=== PATIENT | male | born 1995 | race Caucasian/White ===

== ENCOUNTER 2024-10-02 14:00 | Outpatient (AMB) | payer OTHER, SELFPAY ==
[2024-10-02 14:05] VITALS: BP 126/80; PULSE 93; RESP 16; TEMP 37; O2SAT 99; BMI 30.7
--- NOTE | 2024-10-02 14:05 | MHC.PC.OV ---
Vital Signs 10/02/24 14:05 Height 5 ft 7.75 in Weight 200 lb 3.2 oz BMI 30.7 BP 126/80 Blood Pressure Location Lt brachial Position Sitting Respiration 16 Pulse 93 Pulse Source Pulse Oximeter Temp 98.6 F Temp Source Oral Pulse Oximetry (%) 99 Oxygen Delivery Method Room Air Intake Visit Reasons: establish care Intake Note: Patient is a new patient here to establish care. Transferring care from [facility]. Medical records have not been requested and have not received. Strategic Advisor Required: No Accompanied by: Self / Same As Patient Allergies No Known Allergies Allergy (Verified 10/02/24 14:19) Medication List - Last Reconciled 10/06/24 by TEOFILO Hernandez amoxicillin-pot clavulanate 875-125 mg 1 tab PO BID 10 days carbamide peroxide 6.5% (Debrox) 5 drps otic (ears) Q12H 4 days cetirizine 10 mg PO DAILY PRN fluticasone propionate 50 mcg/actuation 1 spray intranasal BID Tobacco use date assessed: 10/02/24 Dental Screening Dental Screen Date: 10/02/24 Did you have a dental visit in the last 12 months?: Yes Did you have a dental problem in the last 6 months where you did not have access to dental care?: No Was dental information given to patient?: Patient has dentist HPI establish care HPI Details Previous PCP: does not remember the name Last visit:2016 Last PE: same Specialist:n/a OBGYN:n/a Past medical history: Anxiety (reports seeing a therapist last week, will be seeing them next month Medications: Family HX:Mother HTN, DM -maternal grandmother, maternal uncle Problem: Reports that he is concern that may be he has ear infection and lately he has been getting heart palpitation reports that he noticed them throughout the day and but her noticed them more when he lays down Reports that it feels like his heart skips, speeds up or slow down reports that her gets sob WITH these symptoms Reports that a mild chest pain sometimes with these symptoms as well Reports that sometimes he will get dizzy or lightheaded denies drinking coffee or alcohol and never smoked EKG normal in office: The patient is going to play close attention to seeing it is his anxiety triggering the sensations Both ears are itchy, denies ear pain, + ear drainage from ears, clear in color most of the time, other times it is yellowish reports that he feel like water in the ears, the patient reports that is struggles with allergy and his also congested reports that he take zyrtec and sinus lavage without any significant improvements left ear completely blocked with cerumen impaction= right ear TM opaque without code of light= otitis media lungs clear, heart rate sinus The patient reports that his heart palpitations has been happenig pretty frequent lately. 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 1. Little interest or pleasure in doing things: several days 2. Feeling down, depressed, or hopeless: several days 3. Trouble falling or staying asleep, or sleeping too much: more than half the days 4. Feeling tired or having little energy: more than half the days 5. Poor appetite or overeating: several days 6. Feeling bad about yourself - or that you are a failure or have let yourself or your family down: several days 7. Trouble concentrating on things, such as reading the newspaper or watching television: not at all 8. Moving or speaking so slowly that other people could have noticed. Or the opposite - being so fidgety or restless that you have been moving around a lot more than usual: not at all 9. Thoughts that you would be better off or of hurting yourself in some way: not at all Total score: 8 Depression Screening Interpretation: Positive Depression Screening Done: Yes 40165 - PHQ-9 Billing: Yes Source: Developed by Drs. Kevin Ballard, Montrell Perkins and colleagues, with an educational brent from [employer]. Thrive Questionnaire Date Thrive assessed: 10/02/24 I am a: Patient What is your living situation today?: I have a steady place to live Within the past 12 months, did the food you bought not last and you didn't have the money to get more?: Sometimes True Within the past 12 months, did you worry whether your food would run out before you got money to buy more?: Sometimes True Do you have trouble paying for medicines?: No Do you have trouble getting transportation to medical appointments?: No Do you have trouble paying your heating and electricity bill?: No Do you have trouble taking care of your child, family member or friend?: No Do you have trouble with day-to-day activities such as bathing, preparing meals, shopping, managing finances, etc.?: No Are you currently unemployed and looking for a job?: No Are you interested in more education?: No Please select the resources that you would like help with: None Currently or been in a relationship where the following occur: No concerns reported THRIVE Score: 2 AUDIT C Alcohol Use Questionnaire (AUDIT-C) 1. How often do you have a drink containing alcohol?: Never Total Score: 0 DARRON-7 AMB Questionnaire DARRON-7 Date DARRON - 7 assessed: 10/02/24 Feeling nervous, anxious, or on edge: 1 = Several days Not being able to stop or control worryin = Several days Worrying too much about different things: 1 = Several days Trouble relaxin = Several days Being so restless that it is hard to sit still: 1 = Several days Becoming easily annoyed or irritable: 1 = Several days Feeling afraid as if something awful might happen: 1 = Several days Total DARRON-7 score (0-4 normal; 5-9 mild; 10-14 moderate; 15-21 severe): 7 Source: Developed by Dione Vidal Kurt Kroenke and colleagues, with an educational brent from [employer]. DARRON-7 Assessment Billing DARRON-7 Assessment Tool: DARRON-7 Assessment 46665 Review of Systems Const Denies headache(s) Eyes Denies loss of vision ENT Denies vertigo, Denies dizziness, Reports ear discharge (see HPI), Denies otalgia, Denies headache(s), Denies hearing loss, Reports nasal congestion (ongoing allergy) and Denies sore throat Card Reports chest pain (mild discomfort), Denies leg edema, Denies lightheadedness and Reports other (reports heart palpitation) Resp Denies cough, Denies hemoptysis and Denies wheezing GI Denies abdominal pain, Denies melena, Denies constipation, Denies diarrhea and Denies vomiting Denies dysuria, Denies urinary frequency and Denies urinary urgency Musc Denies arthralgias, Denies joint swelling, Denies numbness and Denies tingling Neuro Denies Abnormal speech present, Denies behavioral changes, Denies vertigo, Denies dizziness, Denies headache(s), Denies loss of vision, Denies memory loss, Denies numbness and Denies tingling Psych Denies anxiety, Denies behavioral changes, Denies depression, Denies memory loss and Denies panic attacks Chris/Lymph Denies easy bleeding and Denies easy bruising Aller/Immun Denies wheezing Physical exam (Primary Care) Vital Signs: Last Vital Signs Temp 98.6 F 10/02/24 14:05 Pulse 93 10/02/24 14:05 Resp 16 10/02/24 14:05 BP 126/80 10/02/24 14:05 Pulse Ox 99 10/02/24 14:05 Oxygen Delivery Method Room Air 10/02/24 14:05 BMI result Body Mass Index 30.7 Tobacco/Smoking Status: Tobacco use Status Tobacco use date assessed 10/02/24 10/02/24 14:21 Patient Tobacco Use Status Never used Tobacco 10/02/24 14:21 e-Cigarette/Vaping Use Never Used 10/02/24 14:21 PHQ-9: PHQ-9 Score PHQ-9: Total score 8 10/02/24 14:22 Depression Screening Interpretation: Positive Thrive Assessment: Date of Thrive Assessment Date Thrive assessed 10/02/24 10/02/24 14:21 Currently or been in a relationship where the following occur: No concerns reported Const General: healthy appearing, no acute distress, alert and awake Nutritional Appearance: well nourished Orientation/consciousness: oriented to person, oriented to place and oriented to time HENMT Ears: TM abnormal (right TM opaque, left TM completely blocked with cerumen) dull and with loss of landmarks on the right (no cone of light) General nose exam: Abnormal mucous membranes and turbinates present boggy Eyes Conjunctivae: conjunctivae normal Sclerae: sclerae normal Pupils: Equal, round and reactive pupils present Neck Neck: Yes no lymphadenopathy and Yes no JVD Thyroid: Thyroid normal Carotids: no bruits Resp Effort & Inspection: normal respiratory effort and not tachypneic Auscultation: no crackles, no rales, no rhonchi and no wheezes Cardio Rate: regular rate Rhythm: regular rhythm Heart sounds: no murmurs and normal S1 and S2 GI Palpation (GI): Soft to palpation, nontender, no hepatomegaly and no splenomegaly Auscultation: normal bowel sounds General: Yes no CVA tenderness Back/Spine/Pelvis Back: no CVA tenderness Skin General skin exam: no rashes or lesions noted and dry skin Neuro General: oriented to person, oriented to place and oriented to time Cranial nerves: Yes Equal, round and reactive pupils present Speech: No Abnormal speech present Gait exam (Neuro): Normal gait present Motor exam (neuro): no tremor noted Extrem Right upper extremity: full ROM Left upper extremity: full ROM Right lower extremity: full ROM; no edema Left lower extremity: full ROM; no edema Psych Mental Status: mental status grossly normal Speech and movement: Normal speech and movement present Affect: normal affect Attitude: cooperative Thought process: Normal thought process present Coding Level of Care Code New Pt Level 4 (50457) Diagnoses Heart palpitations R00.2 Impacted cerumen of left ear H61.22 Laterality: left Nasal congestion R09.81 Right otitis media, unspecified otitis media type H66.91 Otitis media type: unspecified Laterality: right Additional Codes DARRON-7 Assessment Billing - DARRON-7 Assessment Tool: DARRON-7 Assessment 33876 ([id number]) PHQ-9 - 16299 - PHQ-9 Billing: Yes ([id number]) Time Spent (min) 36 Assessment & Plan Assessment & Plan (1) Heart palpitations: Code(s): R00.2 - Palpitations Category: Medical Plan: Ekg negative in office, will send the patient for a 3-day holter monitor to further evaluate (2) Impacted cerumen: Code(s): H61.20 - Impacted cerumen, unspecified ear Category: Medical Qualifiers: Laterality: left Qualified Code(s): H61.22 - Impacted cerumen, left ear Plan: Debrox ear drops ordered (3) Nasal congestion: Code(s): R09.81 - Nasal congestion Category: Medical Plan: Fluticasone propionate 50 mcg/actuation 1 spray intranasal BID (4) Otitis media: Code(s): H66.90 - Otitis media, unspecified, unspecified ear Category: Medical Qualifiers: Otitis media type: unspecified Laterality: right Qualified Code(s): H66.91 - Otitis media, unspecified, right ear Plan: Augmentin BID X10 days ordered Orders: Orders Comprehensive Glidden. Panel Fast Today Z00.00 - Encounter for general adult medical examination without abnormal findings Vitamin D 25-OH Total Today Z00.00 - Encounter for general adult medical examination without abnormal findings UA CC w/rflx Micro + Cult Today Z00.00 - Encounter for general adult medical examination without abnormal findings ECG 3 day holter monitor 10/02/24 R00.2 - Palpitations Complete Blood Count Auto Diff Today Z00.00 - Encounter for general adult medical examination without abnormal findings Lipid Panel Today Z00.00 - Encounter for general adult medical examination without abnormal findings TSH reflex Free T4 Today Z00.00 - Encounter for general adult medical examination without abnormal findings Glucose Fasting Today Z00.00 - Encounter for general adult medical examination without abnormal findings Medications: New fluticasone propionate 50 mcg/actuation administer into each nostril 1 spray intranasal BID 16 grams 0RF R09.81 - Nasal congestion amoxicillin-pot clavulanate 875-125 mg 1 tab PO BID 10 days 20 tabs 0RF H66.90 - Otitis media, unspecified, unspecified ear carbamide peroxide 6.5% (Debrox) 5 drps otic (ears) Q12H 4 days 15 mL 0RF H61.20 - Impacted cerumen, unspecified ear
== END 2024-10-02 15:07 | disposition home or self-care (01) ==
LOC: HO.HMCH 14:01
DX: R00.2 Palpitations (principal); H61.22 Impacted cerumen, left ear; R09.81 Nasal congestion; H66.91 Otitis media, unspecified, right ear

== ENCOUNTER → 2024-10-02 14:00 | Outpatient (BNVA) | payer OTHER, SELFPAY | DX: R00.2 Palpitations (principal); H61.22 Impacted cerumen, left ear; H66.91 Otitis media, unspecified, right ear; R09.81 Nasal congestion | CPT/HCPCS: 96127; 99202 ==

== ENCOUNTER 2024-10-06 13:06 | Outpatient (REF) | payer OTHER, SELFPAY ==
[2024-10-06 13:28] LABS: MANUAL DIFF FLAG NO
[2024-10-06 14:04] LABS: Basophils Absolute Auto 0.1 X10*3/uL (0.0-0.2); Basophils Percent Auto 0.7 % (0-2); Eosinophils Absolute Auto 0.2 X10*3/uL (0.0-0.4); Eosinophils Percent Auto 1.6 % (0-4); Hematocrit 44.7 % (42.0-52.0); Hemoglobin 14.5 g/dl (14.0-18.0); Imm Gran Abs Auto 0.03 X10*3/uL (0.00-0.03); Imm Gran Pct Auto 0.3 % (0.0-0.4); Lymphocytes Percent Auto 20.9 % (20-40); Mean Corpuscular HGB Conc 32.4 g/dl (31.0-36.0); Mean Corpuscular Hemoglobin 27.3 pg (27.0-33.0); Mean Platelet Volume 11.2 fL (9.4-12.4); Monocytes Percent Auto 10.2 % (2-11); Neutrophils Absolute Auto 6.4 x10*3/uL (2.0-8.3); Neutrophils Percent Auto 66.3 % (45-73); Platelet Count 255 X10*3/uL (160-400); Red Blood Count 5.32 X10*6/uL (4.60-5.80); Red Cell Distribution Width 12.5 % (11.0-16.0); White Blood Count 9.6 X10*3/uL (4.8-10.8)
[2024-10-06 14:59] LABS: Alanine Aminotransferase 16 U/L (0-40); Albumin Level 4.5 g/dL (3.5-5.0); Alkaline Phosphatase 109 U/L (39-117); Anion Gap 13 (12-20); Aspartate Amino Transferase 18 U/L (5-37); Bilirubin Total 0.7 mg/dL (0.0-1.0); Blood Urea Nitrogen 16 mg/dL (9-16); Calcium 9.6 mg/dL (8.4-10.2); Carbon Dioxide 25 mmol/L (22-29); Chloride 106 mmol/L (96-108); Cholesterol 135 mg/dL (<200); Estimated Glomerular Filt Rate > 60; Glucose Fasting 88 mg/dL (60-99); HDL Cholesterol 39 mg/dL (>40); LDL Cholesterol Calculated 76 mg/dL (<100); Potassium 3.8 mmol/L (3.3-5.1); Sodium 140 mmol/L (135-145); TSH reflex Free T4 3.01 uIU/mL (0.32-4.0); Total Protein 8.5 g/dL (6.5-8.0); Triglycerides 104 mg/dL (<150); Vitamin D 25-OH Total 20.4 ng/mL (>30)
[2024-10-06 17:18] LABS: Appearance Urine Clear; Color Urine Yellow; Glucose Urine UA Negative (Negative); Leukocyte Esterase Urine Negative (Negative); Nitrite Urine Negative (Negative); Urine Blood Negative (Negative); Urine Ketones Negative (Negative); Urine Protein Negative (Neg-Trace)
== END 2024-10-06 13:07 | disposition home or self-care (01) ==
LOC: HO.LAB 13:06
DX: Z00.00 Encounter for general adult medical examination without abnormal findings (principal)
CPT/HCPCS: 36415; 80053; 80061; 81003; 82306; 84443; 85025

== ENCOUNTER → 2024-10-21 15:29 | Outpatient (REF) | payer OTHER, SELFPAY | LOC: HO.CARD 15:29 | DX: R00.2 Palpitations (principal) | CPT/HCPCS: 93242 ==

== ENCOUNTER → 2024-10-21 15:32 | Outpatient (BNV) | payer OTHER, SELFPAY | PROVIDERS: Visit Provider Internal Medicine Cardiovascular Disease | DX: R00.0 Tachycardia, unspecified (principal) | CPT/HCPCS: 93244 ==

== ENCOUNTER 2024-11-13 14:32 | Outpatient (AMB) | payer OTHER, SELFPAY ==
[2024-11-13 15:12] VITALS: BP 118/78; PULSE 99; RESP 16; TEMP 37.1; O2SAT 97; BMI 29.6
--- NOTE | 2024-11-13 15:12 | MHC.PC.OV ---
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 Impaired Required: No Accompanied by: Self / Same As Patient Allergies No Known Allergies Allergy (Verified 11/13/24 15:22) Medication List - Last Reconciled 11/13/24 by TEOFILO Hernandez cetirizine 10 mg PO DAILY PRN fluticasone propionate 50 mcg/actuation 1 spray intranasal BID PRN Tobacco use date assessed: 11/13/24 Dental Screening Dental Screen Date: 11/13/24 Did you have a dental visit in the last 12 months?: Yes Did you have a dental problem in the last 6 months where you did not have access to dental care?: No Was dental information given to patient?: Patient has dentist HPI pe HPI Details The patient is presenting for annual physical Dentist: up to date Eye: Snellen: Right: Left: Corrected vision: up to date STI screening:n/a Colonoscopy:n/a Pap Smer:n/a PHQ-9: Flu: not this season COVID:x3 Tdap: up to date Diet:regular Exercise: push ups and sit ups The patient is a 29-year-old male presenting with chronic ear discomfort secondary to suspected otitis externa and recent shoulder pain. The patient reported persistent ear issues initially treated with antibiotics for possible bacterial infection on prior visit; however, now the patient is having an itching sensation in his ear, suspecting potentially fungal infection. The patient reports an itching sensation primary in his left ear. The patient's shoulder discomfort appears related to his sleeping position on the affected side, causing strain rather than significant acute injury or trauma. He can perform daily activities but experiences discomfort when performing certain weight-bearing exercises. A previous monitoring for arrhythmias via a heart monitor exhibited episodes of shortness of breath correlating with anxiety and sleep deprivation without cardiac irregularities. Vitamin D deficiency was noted, along with increased protein intake contributing to elevated lab protein levels, necessitating dietary awareness. 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 1. Little interest or pleasure in doing things: several days 2. Feeling down, depressed, or hopeless: several days 3. Trouble falling or staying asleep, or sleeping too much: more than half the days 4. Feeling tired or having little energy: more than half the days 5. Poor appetite or overeating: more than half the days 6. Feeling bad about yourself - or that you are a failure or have let yourself or your family down: several days 7. Trouble concentrating on things, such as reading the newspaper or watching television: not at all 8. Moving or speaking so slowly that other people could have noticed. Or the opposite - being so fidgety or restless that you have been moving around a lot more than usual: nearly every day 9. Thoughts that you would be better off or of hurting yourself in some way: not at all Total score: 12 Depression Screening Interpretation: Positive Depression Screening Done: Yes 48439 - PHQ-9 Billing: Yes Source: Developed by Drs. Kevin Ballard, Dione Knapp, Montrell Jurado and colleagues, with an educational brent from [employer]. Thrive Questionnaire Date Thrive assessed: 11/13/24 I am a: Patient What is your living situation today?: I have a steady place to live Within the past 12 months, did the food you bought not last and you didn't have the money to get more?: Sometimes True Within the past 12 months, did you worry whether your food would run out before you got money to buy more?: Sometimes True Do you have trouble paying for medicines?: No Do you have trouble getting transportation to medical appointments?: No Do you have trouble paying your heating and electricity bill?: No Do you have trouble taking care of your child, family member or friend?: No Do you have trouble with day-to-day activities such as bathing, preparing meals, shopping, managing finances, etc.?: No Are you currently unemployed and looking for a job?: No Are you interested in more education?: No Please select the resources that you would like help with: None Currently or been in a relationship where the following occur: No concerns reported THRIVE Score: 2 AUDIT C Alcohol Use Questionnaire (AUDIT-C) 1. How often do you have a drink containing alcohol?: Never Total Score: 0 Score Reviewed/Action Taken: No DARRON-7 AMB Questionnaire DARRON-7 Date DARRON - 7 assessed: 11/13/24 Feeling nervous, anxious, or on edge: 2 = More than half the days Not being able to stop or control worryin = Several days Worrying too much about different things: 1 = Several days Trouble relaxin = Several days Being so restless that it is hard to sit still: 1 = Several days Becoming easily annoyed or irritable: 0 = Not at all Feeling afraid as if something awful might happen: 0 = Not at all Total DARRON-7 score (0-4 normal; 5-9 mild; 10-14 moderate; 15-21 severe): 6 Source: Developed by Drs. Kevin Ballard, Dione Knapp, Montrell Jurado and colleagues, with an educational brent from [employer]. DARRON-7 Assessment Billing DARRON-7 Assessment Tool: DARRON-7 Assessment [id number] Review of Systems Const Details: - General: Denies fatigue, malaise. - Ear/Nose/Throat: Reports ear discomfort. - Musculoskeletal: Reports shoulder discomfort, denies severe pain or functional limitations. - Cardiovascular: Denies palpitations; reports shortness of breath. - Endocrine: Denies symptoms of thyroid dysfunction. - Psychiatric: Reports anxiety. Denies headache(s) Eyes Denies loss of vision ENT Denies vertigo, Denies dizziness, Denies headache(s), Denies sore throat and Reports other (itching primarily in the left ear) Card Denies chest pain, Reports rapid heart rate, Denies leg edema, Denies lightheadedness and Reports dyspnea (associated with fast heart rates) Resp Denies cough, Denies hemoptysis, Reports dyspnea (associated with fast heart rates) and Denies wheezing GI Denies abdominal pain, Denies melena, Denies constipation, Denies diarrhea and Denies vomiting Denies dysuria, Denies urinary frequency and Denies urinary urgency Musc Reports arthralgias (right shoulder-discomfort), Denies joint swelling, Denies numbness and Denies tingling Neuro Denies Abnormal speech present, Denies behavioral changes, Denies vertigo, Denies dizziness, Denies headache(s), Denies loss of vision, Denies memory loss, Denies numbness and Denies tingling Psych Denies anxiety, Denies behavioral changes, Denies depression, Denies memory loss and Denies panic attacks Chris/Lymph Denies easy bleeding and Denies easy bruising Aller/Immun Denies wheezing Physical exam (Primary Care) Vital Signs: Last Vital Signs Temp 98.8 F 11/13/24 15:12 Pulse 99 11/13/24 15:12 Resp 16 11/13/24 15:12 BP 118/78 11/13/24 15:12 Pulse Ox 97 11/13/24 15:12 Oxygen Delivery Method Room Air 11/13/24 15:12 BMI result Body Mass Index 29.6 Tobacco/Smoking Status: Tobacco use Status Tobacco use date assessed 11/13/24 11/13/24 15:20 Patient Tobacco Use Status Never used Tobacco 11/13/24 15:20 e-Cigarette/Vaping Use Never Used 11/13/24 15:20 PHQ-9: PHQ-9 Score PHQ-9: Total score 12 11/14/24 15:12 Depression Screening Interpretation: Positive Thrive Assessment: Date of Thrive Assessment Date Thrive assessed 11/13/24 11/13/24 15:20 Currently or been in a relationship where the following occur: No concerns reported Const General: healthy appearing, no acute distress, alert and awake Nutritional Appearance: well nourished Orientation/consciousness: oriented to person, oriented to place and oriented to time HENMT Ears: TM's normal bilaterally and Abnormal EAC present (white/casillas secretion and patchy areas in bilateral ears) General nose exam: Normal nasal mucous membranes and turbinates present Eyes Conjunctivae: conjunctivae normal Sclerae: sclerae normal Pupils: Equal, round and reactive pupils present Neck Neck: Yes no lymphadenopathy and Yes no JVD Thyroid: Thyroid normal Carotids: no bruits Resp Effort & Inspection: normal respiratory effort and not tachypneic Auscultation: no crackles, no rales, no rhonchi and no wheezes Cardio Rate: regular rate Rhythm: regular rhythm Heart sounds: no murmurs and normal S1 and S2 GI Palpation (GI): Soft to palpation, nontender, no hepatomegaly and no splenomegaly Auscultation: normal bowel sounds Skin General skin exam: no rashes or lesions noted and dry skin Neuro General: oriented to person, oriented to place and oriented to time Cranial nerves: Yes Equal, round and reactive pupils present Speech: No Abnormal speech present Gait exam (Neuro): Normal gait present Motor exam (neuro): no tremor noted Extrem Right upper extremity: full ROM Left upper extremity: full ROM Right lower extremity: full ROM; no edema Left lower extremity: full ROM; no edema Psych Mental Status: mental status grossly normal Speech and movement: Normal speech and movement present Affect: normal affect Attitude: cooperative Thought process: Normal thought process present Results Reviewed Results Reviewed: Laboratory Tests 10/06/24 10/06/24 13:25 14:50 WBC 9.6 RBC 5.32 Hgb 14.5 Hct 44.7 MCV 84.0 MCH 27.3 MCHC 32.4 RDW 12.5 Plt Count 255 Sodium 140 Potassium 3.8 Chloride 106 Carbon Dioxide 25 Anion Gap 13 BUN 16 Creatinine 1.09 Estimated GFR > 60 Fasting Glucose 88 Calcium 9.6 Total Bilirubin 0.7 AST 18 ALT 16 Alkaline Phosphatase 109 Total Protein 8.5 H Albumin 4.5 Triglycerides 104 Cholesterol 135 LDL Cholesterol, Calc 76 HDL Cholesterol 39 L 25-OH Vitamin D Total 20.4 L TSH 3.01 Urine Color Yellow Urine Appearance Clear Urine pH 6.0 Ur Specific [place] 1.010 Urine Protein Negative Urine Glucose (UA) Negative Urine Ketones Negative Urine Blood Negative Urine Nitrite Negative Ur Leukocyte Esterase Negative Coding Level of Care Code Est Pt Prev Care 18-39y(93259) Diagnoses Annual physical exam Z00.00 Heart palpitations R00.2 Other infective acute otitis externa of both ears H60.393 Otitis externa type: other infective Chronicity: acute Laterality: bilateral Nasal congestion R09.81 Right shoulder pain, unspecified chronicity M25.511 Chronicity: unspecified Vitamin D deficiency E55.9 Additional Codes DARRON-7 Assessment Billing - DARRON-7 Assessment Tool: DARRON-7 Assessment [id number] ([id number]) PHQ-9 - 06355 - PHQ-9 Billing: Yes ([id number]) Time Spent (min) 33 Assessment & Plan Assessment & Plan (1) Annual physical exam: Code(s): Z00.00 - Encounter for general adult medical examination without abnormal findings Category: Medical (2) Heart palpitations: Code(s): R00.2 - Palpitations Category: Medical (3) Otitis externa: Code(s): H60.90 - Unspecified otitis externa, unspecified ear Category: Medical Qualifiers: Otitis externa type: other infective Chronicity: acute Laterality: bilateral Qualified Code(s): H60.393 - Other infective otitis externa, bilateral (4) Nasal congestion: Code(s): R09.81 - Nasal congestion Category: Medical (5) Right shoulder pain: Code(s): M25.511 - Pain in right shoulder Category: Medical Qualifiers: Chronicity: unspecified Qualified Code(s): M25.511 - Pain in right shoulder (6) Vitamin D deficiency: Code(s): E55.9 - Vitamin D deficiency, unspecified Category: Medical Plan Preventative guidelines and recent labs reviewed with patient. He also had 3-day holter monitor done for complains of heart palpitation. The patient results showed sinus tachycardia with no ectopy, appears to be correlating with the patient complaints of anxiety and sob. Administration of ear drops to address suspected fungal ear infection; ear drops ordered. Monitoring of shoulder discomfort through changes in sleeping position and activity modifications. Management of vitamin D deficiency through supplements, addressing dietary habits. Continuous monitoring for anxiety-related symptoms and provision of lifestyle modifications to reduce anxiety. No cardiac cause detected for shortness of breath, continuous observation advised. Patient was informed and verbally consented to the use of an ambient scribe for clinic note documentation during this visit. Orders: Orders Lipid Panel 1 Year H60.90 - Unspecified otitis externa, unspecified ear, R00.2 - Palpitations, R09.81 - Nasal congestion, Z00.00 - Encounter for general adult medical examination without abnormal findings TSH reflex Free T4 1 Year H60.90 - Unspecified otitis externa, unspecified ear, R00.2 - Palpitations, R09.81 - Nasal congestion, Z00.00 - Encounter for general adult medical examination without abnormal findings UA CC w/rflx Micro + Cult 1 Year H60.90 - Unspecified otitis externa, unspecified ear, R00.2 - Palpitations, R09.81 - Nasal congestion, Z00.00 - Encounter for general adult medical examination without abnormal findings Vitamin D 25-OH Total 1 Year H60.90 - Unspecified otitis externa, unspecified ear, R00.2 - Palpitations, R09.81 - Nasal congestion, Z00.00 - Encounter for general adult medical examination without abnormal findings Glucose Fasting 1 Year H60.90 - Unspecified otitis externa, unspecified ear, R00.2 - Palpitations, R09.81 - Nasal congestion, Z00.00 - Encounter for general adult medical examination without abnormal findings Complete Blood Count Auto Diff 1 Year H60.90 - Unspecified otitis externa, unspecified ear, R00.2 - Palpitations, R09.81 - Nasal congestion, Z00.00 - Encounter for general adult medical examination without abnormal findings Comprehensive [place]. Panel Fast 1 Year H60.90 - Unspecified otitis externa, unspecified ear, R00.2 - Palpitations, R09.81 - Nasal congestion, Z00.00 - Encounter for general adult medical examination without abnormal findings Medications: New hydrocortisone-acetic acid 1-2 % apply to (cotton) wick; replace wick every 24 hours 4 drps otic (ear) left TID 10 days 10 mL 0RF H60.90 - Unspecified otitis externa, unspecified ear Changed From fluticasone propionate 50 mcg/actuation administer into each nostril 1 spray intranasal BID 16 grams 0RF R09.81 - Nasal congestion To fluticasone propionate 50 mcg/actuation administer into each nostril 1 spray intranasal BID PRN R09.81 - Nasal congestion Patient Instructions: - Use prescribed ear drops in both ears, 4 drops, 3 times a day, holding it in for proper absorption. - Take vitamin D supplement of 1000 IU daily. - Monitor anxiety symptoms, avoid triggers, ensure adequate sleep. - Adjust sleeping position to relieve shoulder discomfort; alert clinician if pain worsens. - Follow up next year for a physical exam with preordered lab work.
== END 2024-11-13 16:38 | disposition home or self-care (01) ==
LOC: HO.HMCH 14:33
DX: Z00.00 Encounter for general adult medical examination without abnormal findings (principal); R00.2 Palpitations; H60.393 Other infective otitis externa, bilateral; R09.81 Nasal congestion; M25.511 Pain in right shoulder; E55.9 Vitamin D deficiency, unspecified

== ENCOUNTER → 2024-11-13 14:32 | Outpatient (BNVA) | payer OTHER, SELFPAY | DX: Z00.00 Encounter for general adult medical examination without abnormal findings (principal); R00.2 Palpitations; H60.393 Other infective otitis externa, bilateral; R09.81 Nasal congestion; M25.511 Pain in right shoulder; E55.9 Vitamin D deficiency, unspecified | CPT/HCPCS: 96127; 99395 ==

== ENCOUNTER 2024-12-24 13:19 | Outpatient (AMB) | payer OTHER, SELFPAY ==
[2024-12-24 13:30] VITALS: BP 126/78; PULSE 110; TEMP 36.8; O2SAT 96; BMI 30.6
--- NOTE | 2024-12-24 13:30 | MHC.OFFWIV ---
Intake Vital Signs 12/24/24 13:30 Height 5 ft 5.75 in Weight 188 lb BMI 30.6 BP 126/78 Blood Pressure Location Lt brachial Position Sitting Pulse 110 H Pulse Source Pulse Oximeter Temp 98.2 F Temp Source Oral Pulse Oximetry (%) 96 Oxygen Delivery Method Room Air Intake Visit Reasons: EP Rt shoulder pain Intake Note: Pt presents to the office today for c/o right shoulder pain when lifting his arm above his head. Pt states this has been going on for the past 4 months with no known injury. Patient Tobacco Use Status: Never used Tobacco Allergies No Known Allergies Allergy (Verified 12/24/24 13:33) HPI HPI Comments History of Present Illness Details History of Present Illness - The patient is a 29-year-old male presenting with right shoulder pain persisting for four months without any specific known injury. - He reports pain exacerbation with lifting objects above head, rotation, and while engaging in activities such as throwing a football. - Initial recommendations included treating for soreness with lqzq-cif-ptyeric medications though with minimal improvement, prompting further assessment. - No associated symptoms such as numbness radiating into the hands, back pain, or neck pain are reported. - Difficulty in performing push-ups and specific maneuvers indicate persistent discomfort. - Movements eliciting pain include lifting arm upwards, moving it across the body, and placing the hand behind the back. - He denies trauma or falls. He denies numbness, tingling, neck pain, upper back pain, arm pain. Physical Exam General: Cooperative, healthy appearing, comfortable, no acute distress and well developed Neck: Normal visual inspection and Yes full ROM Respiratory: Normal respiratory effort and able to speak in complete sentences. Clear to auscultation bilaterally Cardiovascular: Regular rate and rhythm. Normal S1 and S2 Skin: No rashes or lesions noted Neuro: Patient oriented x3. Sensation intact. Extremities: FROM of the shoulders bilaterally. No click noted. No TTP of the clavicle, AC joint, anterior or posterior shoulder. No TTP of upper arm pain. FROM of the right elbow and wrist. Hand industrial waste inspector intact. Strength is 5/5 on the UE bilaterally. Patient was informed and verbally consented to the use of an ambient scribe for clinic note documentation during this visit. [facility] Surgical History No pertinent past surgical history Family History Father Depression Anxiety Substance abuse Mother FH: type 2 diabetes Obesity Social History Household Members Other:: Maternal Grandmother Housing: Apartment Are you a primary healthcare recruiter to a significant other at home: Yes Alcohol intake: never Patient Tobacco Use Status: Never used Tobacco e-Cigarette/Vaping Use: Never Used Second Hand Smoke Exposure: No service: No Current occupational status: employed Current occupation: MEDICAL ADMINISTRATIVE Cognitive needs: No Hearing needs: No Vision needs: No Review of Systems Const All systems reviewed & are unremarkable except as noted in HPI and below Physical Exam Vital Signs: Last Vital Signs Temp 98.2 F 12/24/24 13:30 Pulse 110 H 12/24/24 13:30 BP 126/78 12/24/24 13:30 Pulse Ox 96 12/24/24 13:30 Oxygen Delivery Method Room Air 12/24/24 13:30 BMI result Body Mass Index 30.6 Assessment & Plan Assessment & Plan (1) Right shoulder pain: Code(s): M25.511 - Pain in right shoulder Qualifiers: Chronicity: unspecified Qualified Code(s): M25.511 - Pain in right shoulder Plan: Most likely Plan - Order radiographic imaging of the right shoulder to assess underlying structural issues. - Referral to orthopedic surgery is indicated to explore further management options given the duration and nature of pain. - Advise the patient to refrain from activities that may exacerbate pain until further assessment is finalized. - Coordinate with orthopedics for follow-up care post-imaging outcomes to implement an appropriate management strategy. Plan Most likely strain vs AC joint separation vs tendonitis vs bursitis Plan - Naproxen as needed for pain. - Order radiographic imaging of the right shoulder to assess underlying structural issues. X-ray was normal and discussed with patient. - Referral to orthopedic surgery is indicated to explore further management options given the duration and nature of pain. - Advise the patient to refrain from activities that may exacerbate pain until further assessment is finalized. Orders: Orders XR shoulder RT min 2V Today M25.511 - Pain in right shoulder Referrals Orthopedics Referral M25.511 - Pain in right shoulder Medications: New naproxen 500 mg PO Q12H PRN 20 tabs 0RF pain Coding Level of Care Code Est Pt Level 4 (34646) Diagnoses Right shoulder pain, unspecified chronicity M25.511 Chronicity: unspecified
== END 2024-12-24 14:54 | disposition home or self-care (01) ==
PROVIDERS: Visit Provider Physician Assistant Medical
DX: M25.511 Pain in right shoulder (principal)

== ENCOUNTER 2024-12-24 13:19 | Outpatient (REF) | payer OTHER, SELFPAY ==
--- NOTE | ~2024-12-24 | XR_ITS ---
EXAMINATION: XR SHOULDER, RIGHT CLINICAL INFORMATION: M25.511 - Pain in right shoulder COMPARISON: None available. TECHNIQUE: Three views of the right shoulder. FINDINGS: Normal bone mineralization. No fracture, dislocation, or suspicious bone lesion. Normal alignment. The glenohumeral joint is normal. The AC joint is normal. There is a type II acromion. No undersurface spurring. The subacromial space is preserved. Remainder of the soft tissue and bony structures appear normal. XR/XR shoulder RT min 2V IMPRESSION: Normal right shoulder. Electronically signed by: Sung James MD 12/24/2024 02:30 PM EDT
== END 2024-12-24 13:20 | disposition home or self-care (01) ==
LOC: HO.HMGCX 13:19
PROVIDERS: Visit Provider Physician Assistant Medical
DX: M25.511 Pain in right shoulder (principal)
CPT/HCPCS: 73030; 99212

== ENCOUNTER → 2024-12-24 14:10 | Outpatient (BNV) | payer OTHER, SELFPAY | PROVIDERS: Visit Provider Radiology Diagnostic Radiology | DX: M25.511 Pain in right shoulder (principal) | CPT/HCPCS: 73030 ==

== ENCOUNTER 2025-02-24 11:01 | Outpatient (AMB) | payer OTHER, SELFPAY ==
--- NOTE | 2025-02-24 11:07 | A.OFFVIS_ITS ---
Vital Signs 02/24/25 11:11 Height 5 ft 8 in Weight 175 lb BMI 26.6 Intake Visit Reasons: Right shoulder pain and weakness Intake Note: Larry is a 29 year old male right hand dominant who presents with complaints of progressively worsening right shoulder pain and weakness. The patient states that his symptoms have gotten worse over the last 7 months. The patient states that he hurt his shoulder in July. He had acute onset of pain along the lateral aspect of his right shoulder. He has tried physical therapy exercises which aggravated his pain. He has also tried naproxen and Tylenol which gave him minimal relief. The patient reports weakness when lifting his right hand above shoulder height. Allergies No Known Allergies Allergy (Verified 02/24/25 11:11) Medication List - Last Reconciled 02/24/25 by Aden Estevez MD cetirizine 10 mg PO DAILY PRN fluticasone propionate 50 mcg/actuation 1 spray intranasal BID PRN PFSH Surgical History No pertinent past surgical history Family History Father Depression Anxiety Substance abuse Mother FH: type 2 diabetes Obesity Social History Household Members Other:: Maternal Grandmother Housing: Apartment Are you a primary patient centered care specialist to a significant other at home: Yes Alcohol intake: never Patient Tobacco Use Status: Never used Tobacco e-Cigarette/Vaping Use: Never Used Second Hand Smoke Exposure: No service: No Current occupational status: employed Current occupation: [employer] Cognitive needs: No Hearing needs: No Vision needs: No Physical Exam Vital Signs: BMI result Body Mass Index 26.6 Const Other: Well-nourished well-developed very friendly male awake alert and oriented x3 in no acute distress Extrem Other: Bilateral upper extremity examination shows good capillary refill, no skin lesions noted, normal sensation light touch Right shoulder examination shows slightly decreased range motion when compared to his left shoulder, positive impingement signs, 4+ out of 5 strength with supraspinatus testing, tenderness over his acromioclavicular joint, no instability Results Reviewed Results Reviewed: X-rays of the patient's right shoulder show moderate to severe acromioclavicular joint narrowing, a type 2 acromion, no acute bony abnormalities Assessment & Plan Assessment & Plan (1) Rotator cuff insufficiency of right shoulder: Code(s): M25.311 - Other instability, right shoulder Category: Medical Plan Mr. Vasquez presents with right shoulder pain and weakness due to impingement syndrome as well as possible rotator cuff or labral tearing. Thus, I will send the patient for an MRI of his right shoulder for further evaluation. I will contact him by phone once the MRI results are available. Feel free to call me at any time should questions regarding his orthopedic management arise. Thank you very much for asking me to see this very friendly gentleman. I spent 21 minutes in reviewing the patient's records and imaging studies, seeing the patient and documenting in the medical record. Orders: Orders MR shoulder RT wo con 02/25/25 M25.311 - Other instability, right shoulder Coding Level of Care Code New Pt Level 3 (33944) Complex EM visit Add On G2211 Diagnoses Rotator cuff insufficiency of right shoulder M25.311
[2025-02-24 11:11] VITALS: BMI 26.6
== END 2025-02-24 11:23 | disposition home or self-care (01) ==
LOC: HO.HOS 11:02
PROVIDERS: Visit Provider Orthopaedic Surgery
DX: M25.311 Other instability, right shoulder (principal)
CPT/HCPCS: 99203

== ENCOUNTER → 2025-02-24 11:01 | Outpatient (BNVA) | payer OTHER, SELFPAY | PROVIDERS: Visit Provider Orthopaedic Surgery | DX: M25.311 Other instability, right shoulder (principal) | CPT/HCPCS: 99202 ==

== ENCOUNTER 2025-05-11 08:00 | Outpatient (RCR) | payer OTHER, SELFPAY ==
--- NOTE | 2025-04-12 09:46 | MHC.PT.EP ---
[facility] [place] Office [place] Office [place] Office [address] Azar Cifuentes [address] [phone] F: [phone] F: [phone] F: [phone] F: [phone] Physical Therapy Plan of Care Date of Evaluation: 04/12/25 Date of Surgery: n/a Diagnosis: R shoulder impingement Assessment: Patient is a 30 year old male presenting to PT with complaints of pain in his R shoulder. Pt reports onset of pain began 1 year ago due to insidious onset. He presents today with impairments in pain, ROM, shoulder strength, posture. 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 Clinical presentation today is most consistent with signs and sx associated with R shoulder pain and pt will benefit from skilled PT 2 week x 4 weeks to address the following problems and impairments noted upon evaluation: pain, ROM, shoulder strength, posture. These problems limit the patient with the following functional activities: reaching, lifting, ADLs, work. The prescribed treatment plan of care is medically necessary. Co-morbidities of none were identified and taken into considerations of plan of care. Pt was educated on HEP, role of PT, prognosis, POC. Frequency and Duration: The patient will be seen 2 x week x 4 weeks Short Term Goals: Pt will demonstrate R shoulder ROM equal B in 2 weeks. Pt will demonstrate improved R shoulder MMT strength by 1/3 grade in 2 weeks. Pt will require min to no cues during session for postural correction in 2 weeks. Penitentiary Goals: Pt will demonstrate improved SPADI score by 13 points in 4 weeks for improved functional mobility. Pt will demonstrate ability to dress with min to no pain in 4 weeks for improved tolerance to ADLs. Pt will demonstrate ability reach and lift with min to no pain in 4 weeks for return to PLOF. Treatment Plan: Modalities to reduce pain, spasms and effusion. Manual therapy to restore motion and function. Therapeutic exercise to improve strength and flexibility. Neuromuscular re-education for posture and balance. Therapeutic activities to return to functional activities of daily living. Electronically signed by: Audrey Andrade, PT, DPT, ATC Please sign and return to therapist. Thank you for your referral.
--- NOTE | 2025-05-26 09:01 | MHC.PT.DC ---
[facility] [place] Office [place] Office [place] Office [address] Cifuentes [address] [phone] F: [phone] F: [phone] F: [phone] F: [phone] Physical Therapy Discharge Report Diagnosis: R shoulder impingement Date of Surgery: n/a Date of Evaluation: 04/12/25 Date of Discharge: 05/26/25 Treatments to Date: 5 Cancellations to Date: 0 No Shows to Date: 2 Discharge Status: Visit Non-compliance Discharge Summary: Pt has failed to comply with [facility] attendance policy and no showed 2 appointments. Pt therefore to be d/c per policy. Electronically signed by: Audrey Andrade, PT, DPT, ATC Please sign and return to therapist. Thank you for your referral.
== END 2025-05-26 09:01 | disposition home or self-care (01) ==
LOC: HO.PTCHIC 08:00
PROVIDERS: Visit Provider Orthopaedic Surgery
DX: M25.811 Other specified joint disorders, right shoulder (principal)
CPT/HCPCS: 97110; 97161

== ENCOUNTER 2025-05-26 09:43 | Outpatient (AMB) | payer OTHER, SELFPAY ==
--- NOTE | 2025-05-26 09:44 | A.OFFVIS_ITS ---
Intake Visit Reasons: OV - RT shoulder follow up after PT Intake Note: Larry is a 29 year old male right hand dominant who presents with complaints of progressively worsening right shoulder pain and weakness. The patient states that his symptoms have gotten worse over the last 9 months. The patient states that he hurt his shoulder in July. He had acute onset of pain along the lateral aspect of his right shoulder. He has tried physical therapy exercises which aggravated his pain. He has also tried naproxen and Tylenol which gave him minimal relief. The patient reports weakness when lifting his right hand above shoulder height. The patient's insurance company denied his right shoulder MRI because he had not been to formal physical therapy. He has been going to formal physical therapy for the last 6 weeks which has given him no relief of his pain. Allergies No Known Allergies Allergy (Verified 05/26/25 09:48) Medication List - Last Reconciled 05/26/25 by Aden Estevez MD cetirizine 10 mg PO DAILY PRN fluticasone propionate 50 mcg/actuation 1 spray intranasal BID PRN PFSH Surgical History No pertinent past surgical history Family History Father Depression Anxiety Substance abuse Mother FH: type 2 diabetes Obesity Social History Household Members Other:: Maternal Grandmother Housing: Apartment Are you a primary daytime caregiver to a significant other at home: Yes Alcohol intake: never Patient Tobacco Use Status: Never used Tobacco e-Cigarette/Vaping Use: Never Used Second Hand Smoke Exposure: No service: No Current occupational status: employed Current occupation: SOFTWARE RELIABILITY ENGINEER Cognitive needs: No Hearing needs: No Vision needs: No Physical Exam Const Other: Well-nourished well-developed very friendly male awake alert and oriented x3 in no acute distress Extrem Other: Right shoulder examination shows slightly decreased range of motion when compared to his left shoulder, 4+ out of 5 strength with supraspinatus testing, positive impingement signs Assessment & Plan Assessment & Plan (1) Rotator cuff insufficiency of right shoulder: Code(s): M25.311 - Other instability, right shoulder Category: Medical Plan Mr. Vasquez presents with right shoulder pain and weakness due to impingement syndrome and possible rotator cuff tearing. The patient has now failed the last 6 weeks of formal physical therapy. I will once again order a right shoulder MRI to evaluate the status of his rotator cuff tendons. I will see him back once the MRI is completed to discuss the findings and treatment options. Feel free to call me at any time should questions regarding his ortho pedic management arise. I spent 20 minutes in reviewing the patient's records and imaging studies, seeing the patient and documenting in the medical record. Orders: Orders MR shoulder RT wo con 05/27/25 M25.311 - Other instability, right shoulder Coding Level of Care Code Est Pt Level 3 (81891) Complex EM visit Add On G2211 Diagnoses Rotator cuff insufficiency of right shoulder M25.311
== END 2025-05-26 10:02 | disposition home or self-care (01) ==
LOC: HO.HOS 09:44
PROVIDERS: Visit Provider Orthopaedic Surgery
DX: M25.311 Other instability, right shoulder (principal)
CPT/HCPCS: 99213

== ENCOUNTER → 2025-05-26 09:43 | Outpatient (BNVA) | payer OTHER, SELFPAY | PROVIDERS: Visit Provider Orthopaedic Surgery | DX: M25.511 Pain in right shoulder (principal); M25.311 Other instability, right shoulder | CPT/HCPCS: 99212 ==

== ENCOUNTER 2025-07-07 07:30 | Outpatient (REF) | payer OTHER, SELFPAY ==
--- NOTE | ~2025-07-07 | MR_ITS ---
CLINICAL HISTORY: M25.311 - Other instability, right shoulder --- Additional Notes or Special Instructions: The patients right shoulder MRI was initially denied by his insurance Exam: Nonenhanced MRI of the right shoulder. Comparison: Radiographs dated 12/24/2024. Rotator cuff: Supraspinatus, infraspinatus and subscapularis tendons appear intact, with no evidence of tendon tears or significant tendinopathy. Glenoid labrum: There appears to be a small posterior glenoid labral tear (12; 12 -15). No other focal glenoid labral tear is appreciated. Bicipital tendon: Bicipital tendon is within its expected position in the intertubercular groove. Bicipital anchor appears intact. Acromioclavicular joint: Mild degenerative disease. Joint space and soft tissues: There is trace fluid within the subdeltoid bursa. No significant glenohumeral joint effusion. Impression: 1. Suspect small tear involving the posterior glenoid labrum. 2. Trace fluid within the subdeltoid bursa. 3. Mild acromioclavicular degenerative disease. This document has been electronically signed by: Ray Banks MD on 07/07/2025 15:55:50
--- OUTSIDE RECORDS SUMMARY | 2025-07-07 07:34 | XMS_ITS | Clinical Summary ---
Author Organization [facility] Address [address] [place] [phone] Phone Care Team Providers Care Melt House Supervisor Name Role Phone Unavailable Primary Care Provider Unavailabl e Immunizations Immunization Administration Dates Next Due Varicella 03/26/2002 Social History Tobacco Use Types Packs/Day Years Used Date Smoking Tobacco: Never Assessed Sex and Gender Information Value Date Recorded Sex Assigned at Not on file Legal Sex Male 3:28 PM EDT Gender Identity Not on file Sexual Orientation Not on file Plan of Treatment Health Maintenance Due Date Last Done Comments MMR Vaccines (1 of 1 - Stand phillip series) 04/23/2002 Varicella Vaccines (2 of 2 - 2-dose childhood series) 06/18/2002 03/26/2002 DTaP,Tdap,and Td Vaccines (1 - Tdap) 2014 Hepatitis B Vaccines (1 of 3 - 19+ 3-dose series) 2015 HPV Vaccines (1 - 3-dose SCD M series) 2023 Influenza Vaccines (#1) 2025 COVID-19 Vaccine (1 - 2024-2 6 season) 2025 HIB Vaccines Aged Out No longer eligi ble based on patient's age to complete this topic Hepatitis A Vaccines Aged Out No long er eligible based on patient's age to complete this topic IPV Vaccines Aged Out No longer eligi ble based on patient's age to complete this topic Men B Vaccine Aged Out No longer elig ible based on patient's age to complete this topic Meningococcal Vaccine Aged Out No jenn andrews eligible based on patient's age to complete this topic Pneumococcal Vaccine Aged Out No long er eligible based on patient's age to complete this topic
== END 2025-07-07 07:31 | disposition home or self-care (01) ==
LOC: HO.MRI 07:30
PROVIDERS: Visit Provider Orthopaedic Surgery
DX: M25.311 Other instability, right shoulder (principal)
CPT/HCPCS: 73221

== ENCOUNTER → 2025-07-07 07:34 | Outpatient (BNV) | payer OTHER, SELFPAY | PROVIDERS: Visit Provider Radiology Diagnostic Radiology | DX: M19.011 Primary osteoarthritis, right shoulder (principal) | CPT/HCPCS: 73221 ==

== ENCOUNTER 2025-07-14 13:53 | Outpatient (AMB) | payer OTHER, SELFPAY ==
--- OUTSIDE RECORDS SUMMARY | 2025-07-14 13:56 | XMS_ITS | Clinical Summary ---
Author Organization [facility] Address [address] [place] [id number] Phone Care Team Providers Care Manager Global Name Role Phone Unavailable Primary Care Provider [...]
--- NOTE | 2025-07-14 13:57 | A.OFFVIS_ITS ---
Intake Visit Reasons: INJ-right shoulder cortisone injection. Intake Note: Larry is a 30 year old male who presents with complaints of right shoulder pain. He describes his pain as achy in nature. Most of the pain is along the lateral aspect of his shoulder. Has tried Tylenol, anti-inflammatory medicines and physical therapy exercises which gave him minimal relief. He has not had a cortisone injection in the past. He wishes to hold off on surgery if at all possible. Allergies No Known Allergies Allergy (Verified 05/26/25 09:48) Medication List - Last Reconciled 07/14/25 by Aden Estevez MD cetirizine 10 mg PO DAILY PRN fluticasone propionate 50 mcg/actuation 1 spray intranasal BID PRN PFSH Surgical History No pertinent past surgical history Family History Father Depression Anxiety Substance abuse Mother FH: type 2 diabetes Obesity Social History Household Members Other:: Maternal Grandmother Housing: Apartment Are you a primary healthcare advisory services manager to a significant other at home: Yes Alcohol intake: never Patient Tobacco Use Status: Never used Tobacco e-Cigarette/Vaping Use: Never Used Second Hand Smoke Exposure: No service: No Current occupational status: employed Current occupation: BODY AND FENDER WORKER Cognitive needs: No Hearing needs: No Vision needs: No Physical Exam Extrem Other: Right shoulder examination shows full range of motion when compared to his left, positive impingement signs, 4+ out of 5 strength with supraspinatus testing Office Procedures AMB Joint Injection/Aspiration Joint Injection/Aspiration Primary Site: Right Shoulder Prep: site was prepped using aseptic technique Injected: 40 mg of, DepoMedrol, with 3 mL of and 1% plain Lidocaine Procedure: The patient tolerated the procedure well Coding 27035 - Large joint Procedure code (CPT) selection complete Results Reviewed Results Reviewed: MRI of the patient's right shoulder shows acromioclavicular joint narrowing, a type 2 acromion, signal change within the supraspinatus tendon most likely due to rotator cuff tendinosis, possible small labral tear Assessment & Plan Assessment & Plan (1) Impingement of right shoulder: Code(s): M25.811 - Other specified joint disorders, right shoulder Category: Medical Plan Larry presents with right shoulder pain due to impingement syndrome and possible labral tearing. The risks and benefits of a right shoulder cortisone injection were discussed at length with the patient. The patient wished to proceed. Tolerated the injection well. He will continue with his activity modifications. He will contact me prior to his follow-up appointment in 3 months should any questions or concerns arise. Feel free to call me at any time should questions regarding his orthopedic management arise. I spent 22 minutes in reviewing the patient's records and imaging studies, seeing the patient and documenting in the medical record. Orders: Orders AMB Joint Injection/Aspiration Today M25.811 - Other specified joint disorders, right shoulder Coding Level of Care Code Est Pt Level 3 (66104) Add On Problem Visit Only Diagnoses Impingement of right shoulder M25.811 CPT Codes Coding - 33754 Large joint: 97667 - Large joint ([id number])
== END 2025-07-14 14:27 | disposition home or self-care (01) ==
LOC: HO.HOS 13:54
PROVIDERS: Visit Provider Orthopaedic Surgery
DX: M25.811 Other specified joint disorders, right shoulder (principal)
CPT/HCPCS: 20610; 99213

== ENCOUNTER → 2025-07-14 13:53 | Outpatient (BNVA) | payer OTHER, SELFPAY | PROVIDERS: Visit Provider Orthopaedic Surgery | DX: M25.811 Other specified joint disorders, right shoulder (principal) | CPT/HCPCS: 20610; 99212; J1010; J2003 ==